=== PATIENT | male | born 1950 | race Caucasian/White ===

== ENCOUNTER 2018-08-30 11:30 | Outpatient (RCR) | payer MEDICARE, OTHER, SELFPAY | END 2018-08-30 12:00 | LOC: CAR 11:30 | PROVIDERS: Visit Provider Physician Assistant | DX: Z95.1 Presence of aortocoronary bypass graft (principal) | CPT/HCPCS: 93798 ==

== ENCOUNTER 2024-10-25 22:31 | Emergency (ER) | payer MEDICARE, SELFPAY ==
--- NOTE | 2024-10-25 22:35 | DI.RAD.S_ITS ---
PROCEDURE: XR CHEST 1V INDICATIONS: chest pain TECHNIQUE: One view of the chest was acquired. COMPARISON: None. FINDINGS: Surgical changes and devices: Median sternotomy changes. Multi lead left-sided pacemaker. Lungs and pleura: Low lung volumes. Asymmetric right hemidiaphragm elevation. Visible lung ceballos are clear. No focal consolidation, effusion, or pneumothorax. Mediastinum: Mediastinal contours appear normal. Heart size is normal. Bones and chest wall: No suspicious bony lesions. Overlying soft tissues appear unremarkable. IMPRESSION: Given low lung volumes, no acute cardiopulmonary disease. Dictated by: Nely Sepulveda M.D. on 10/25/2024 at 23:55 Approved by: Nely Sepulveda M.D. on 10/25/2024 at 23:56
--- NOTE | 2024-10-25 22:41 | EKG_ITS ---
[address] [address] Test Date: 2024-10-25 Pat Name: CLAUDIA BROWN Department: Room: Gender: Male A And P Technician: EULALIA : 1950 Requested By: Order Number: [id number] Reading MD: Gustavo Sanchez Measurements Intervals [place] Rate: 69 P: 76 ND: 170 QRS: -56 QRSD: 152 T: 85 QT: 430 QTc: 460 Interpretive Statements Atrial-sensed ventricular-paced rhythm Biventricular pacemaker detected Electronically Signed On 11-04-2024 18:49:04 PDT by Gustavo Sanchez
[2024-10-25 22:44] VITALS: BP 127/63; PULSE 71; RESP 16; TEMP 36.4; O2SAT 98; BMI 31.4
[2024-10-25] MEDS: ASPIRIN 81 MG CHEW TAB 324 MG PO (22:51)
[2024-10-25 23:07] LABS: INR 1.1 (0.9-1.3); Prothrombin Time 11.9 SECONDS (9.4-12.5)
[2024-10-25 23:09] LABS: PTT Partial Thromboplastin Tim 36 SECONDS (25.1-36.5)
[2024-10-25 23:11] LABS: Alanine Aminotransferase 36 IU/L (<50); Albumin 4.3 g/dL (3.5-5.0); Albumin Globulin Ratio 1.8 (1.0-2.8); Alkaline Phosphatase 66 U/L (38-126); Aspartate Aminotransferase 27 IU/L (17-59); BUN Creatinine Ratio 25.5 (6-22); Bilirubin Total 0.5 mg/dL (0.2-1.3); Blood Urea Nitrogen 35 mg/dL (9-20); Calcium 9.6 mg/dL (8.4-10.2); Carbon Dioxide 19 mmol/L (22-32); Chloride 109 mmol/L (98-107); Creatine Kinase 91 U/L (55-170); Estimated Glomerular Filt Rate 54 mL/min (>60); Globulin 2.4 g/dL (1.7-4.1); Glucose 183 mg/dL (80-110); HEMOLYSIS < 15 (0-50); Lipase 187 U/L (23-300); Magnesium 1.6 mg/dL (1.6-2.3); Potassium 4.8 mmol/L (3.4-5.1); Sodium 140 mmol/L (137-145); Total Protein 6.7 g/dL (6.3-8.2)
[2024-10-25 23:22] LABS: NT-proBNP (BNP-Adult 18+) 93 pg/mL (<125); Troponin I < 0.012 ng/mL (0.01-0.034)
[2024-10-25 23:26] LABS: Add Manual Diff / Slide Review NO; Basophils Absolute Auto 100 /uL (0-100); Basophils Percent Auto 0.9 % (0-2); Eosinophils Absolute Auto 200 /uL (0-450); Eosinophils Percent Auto 2.3 % (2-4); Hematocrit 41.6 % (41-53); Lymphocytes Absolute Auto 2300 /uL (1100-4500); Lymphocytes Percent Auto 26.4 % (25-40); Mean Corpuscular HGB Conc 33.5 % (30-36); Mean Corpuscular Hemoglobin 31.2 PG (26-34); Monocytes Absolute Auto 700 /uL (0-900); Monocytes Percent Auto 8.1 % (3-14); Neutrophils Absolute Auto 5400 /uL (1500-7000); Neutrophils Percent Auto 62.3 % (50-75); Platelet Count 230 X10^3/uL (150-400); Red Blood Cell Count 4.47 X10^6/uL (4.5-5.9); White Blood Cell Count 8.7 X10^3/uL (4.5-11.0)
[2024-10-26] VITALS (17 sets, daily range): BP systolic 123–186; BP diastolic 68–86; PULSE 60–66; RESP 13–16; O2SAT 93–99
[2024-10-26 02:00] LABS: Troponin I < 0.012 ng/mL (0.01-0.034)
--- NOTE | 2024-10-26 03:22 | EKG_ITS ---
[place] [address] [address] [place] [id number] Test Date: 2024-10-26 Pat Name: CLAUDIA BROWN Department: [facility] Room: Gender: Male Time Broker: LIBRA : 1950 Requested By: Order Number: [id number] Reading MD: Gustavo Sanchez Measurements Intervals [place] Rate: 63 P: 43 PA: 172 QRS: -59 QRSD: 164 T: 101 QT: 450 QTc: 460 Interpretive Statements Atrial-sensed ventricular-paced rhythm Biventricular pacemaker detected Electronically Signed On 11-04-2024 18:49:12 PDT by Gustavo Sanchez
--- NOTE | 2024-10-26 04:39 | ED_ITS ---
HPI - Chest Pain General Chief Complaint: Chest Pain Stated Complaint: Chest pain hx stent placement Time Seen by Provider: 10/25/24 23:52 Source: patient, RN notes reviewed and old records reviewed Mode of arrival: Ambulatory Limitations: no limitations History of Present Illness HPI narrative: 74-year-old male history of prior myocardial infarction with stent placed in November of 2023, CABG and pacemaker placed 5 years ago/patient presents with a complaint of chest discomfort similar to prior AL took nitro at 10:00 p.m. pain relieved. Patient states had left-sided chest pain radiating to his left arm feels very similar to his prior AL. patient nitro sublingual which improved it. Symptoms started about 10:00 a.m. this evening. Patient denies any shortness of breath has a little bit of nausea, no diaphoresis. Denies any she was bowel movements or urination. No new swelling in extremities. No syncope. Patient was on an aspirin 81 mg daily. Patient has had prior two-vessel CABG, pacemaker followed by cardiac stents 2 years ago. Patient has also had prior Mohs surgery on his ear. No reported drug allergies. No tobacco, alcohol or recreational drugs. Follows with Cardiology at [facility] in [place] Dr. Knutson. Lives on [facility]. Patient's home medications include aspirin 81 mg daily, atorvastatin, Synthroid, metoprolol, metformin, Ozempic, citalopram, Lantus, losartan, Effient, amlodipine, nitro sublingual PRN. Related Data Home Medications Medication Instructions Recorded Confirmed amlodipine 10 mg tablet 10 mg PO DAILY 10/25/24 10/25/24 atorvastatin 40 mg tablet 40 mg PO DAILY 10/25/24 10/25/24 escitalopram oxalate 10 mg tablet 10 mg PO DAILY 10/25/24 10/25/24 insulin glargine 100 unit/mL (3 unit SUBCUT 10/25/24 mL) subcutaneous pen (Lantus Solostar U-100 Insulin) levothyroxine 88 mcg tablet 88 mcg PO DAILY 10/25/24 10/25/24 losartan 100 mg tablet 100 mg PO DAILY 10/25/24 10/25/24 metformin 1,000 mg tablet 1,000 mg PO BID 10/25/24 10/25/24 metoprolol succinate 100 mg 100 mg PO DAILY 10/25/24 10/25/24 tablet,extended release 24 hr nitroglycerin 0.4 mg sublingual 0.4 mg sublingual Q5-15M PRN Chest 10/25/24 10/25/24 tablet (Nitrostat) Pain prasugrel HCl 10 mg tablet 10 mg PO DAILY 10/25/24 10/25/24 semaglutide 2 mg/dose (8 mg/3 mL) mg SUBCUT 10/25/24 subcutaneous pen injector (Ozempic) Allergies Allergy/AdvReac Type Severity Reaction Status Date / Time No Known Drug Allergies Allergy Verified 10/25/24 22:48 Review of Systems Review of Systems ROS Unobtainable: All systems reviewed & are unremarkable except as noted in HPI and below Exam Narrative Exam Narrative: GENERAL: Alert and oriented x three, male in mild distress HEENT: Head normocephalic, atraumatic, EOMI, pupils reactive, face symmetric, moist mucous membranes NECK: Supple, full range of motion CARDIOVASCULAR: Regular rate and rhythm without murmurs, rubs or gallops. No JVD. No edema bilateral lower extremities. RESPIRATORY: Breath sounds equal bilaterally, no wheezes rales or rhonchi. ABDOMEN: Soft, nontender. Normoactive bowel sounds all 4 quadrants. No guarding or rebound, rigidity, no mass : No CVA tenderness EXTREMITIES: Normal range of motion, no clubbing or edema. Neurovascularly intact NEUROLOGICAL: Cranial nerves II through XII grossly intact. Moving all extremities SKIN: Warm, dry, no petechiae, no rashes or lesions. Initial Vital Signs Initial Vital Signs: Vital Signs Temperature 97.5 F L 10/25/24 22:44 Pulse Rate 71 10/25/24 22:44 Respiratory Rate 16 10/25/24 22:44 Blood Pressure 127/63 10/25/24 22:44 Pulse Oximetry 98 10/25/24 22:44 Oxygen Delivery Method Room Air 10/25/24 22:44 Course Orders Ordered: Discontinued Medications Aspirin (Aspirin 81 Mg Chew Tab) 324 mg PO NOW ONE Stop: 10/25/24 22:36 Last Admin: 10/25/24 22:51 Dose: 324 mg Documented By: ULICES Nitroglycerin (Nitroglycerin 0.4 Mg Sl Tab) 0.4 mg SL NOW ONE Stop: 10/26/24 05:14 Last Admin: 10/26/24 05:21 Dose: 0.4 mg Documented By: MARIAN Nitroglycerin (Nitroglycerin Oint 1 Inch/Gm Oint...G.) 1 inch TOP NOW ONE Stop: 10/26/24 05:39 Last Admin: 10/26/24 05:48 Dose: 1 inch Documented By: MARIAN Vital Signs Vital signs: Vital Signs - 8 hr 10/26/24 01:31 10/26/24 01:33 10/26/24 01:33 Pulse Rate 63 60 Respiratory Rate 14 Blood Pressure 155/76 H Pulse Oximetry 98 98 10/26/24 02:00 10/26/24 02:00 10/26/24 02:30 Pulse Rate 61 61 Respiratory Rate 15 15 Blood Pressure 142/75 H Pulse Oximetry 96 97 10/26/24 02:30 10/26/24 03:00 10/26/24 03:00 Pulse Rate 63 Respiratory Rate 13 Blood Pressure 141/73 H 150/72 H Pulse Oximetry 99 10/26/24 03:30 10/26/24 03:30 10/26/24 04:00 Pulse Rate 63 63 Respiratory Rate 13 13 Blood Pressure 147/76 H Pulse Oximetry 96 95 10/26/24 04:00 10/26/24 04:30 10/26/24 04:30 Pulse Rate 63 Respiratory Rate 14 Blood Pressure 151/77 H 162/85 H Pulse Oximetry 99 10/26/24 05:00 10/26/24 05:00 10/26/24 05:30 Pulse Rate 62 Respiratory Rate 15 Blood Pressure 186/86 H 132/70 Pulse Oximetry 96 10/26/24 05:30 10/26/24 05:47 10/26/24 05:47 Pulse Rate 65 61 Respiratory Rate 14 15 Blood Pressure 141/76 H Pulse Oximetry 93 96 10/26/24 05:48 10/26/24 06:00 10/26/24 06:00 Pulse Rate 64 62 Respiratory Rate 16 Blood Pressure 141/76 H 151/81 H Pulse Oximetry 97 MDM - Chest Pain Lab Data 10/25/24 22:50 10/25/24 22:50 Labs: Lab Results 10/25/24 10/26/24 Range/Units 22:50 01:30 WBC 8.7 (4.5-11.0) X10^3/uL RBC 4.47 L (4.5-5.9) X10^6/uL Hgb 14.0 (13.5-17.5) g/dL Hct 41.6 (41-53) % MCV 93.0 (80-100) fL MCH 31.2 (26-34) PG MCHC 33.5 (30-36) % RDW 14.0 (11.6-14.8) % Plt Count 230 (150-400) X10^3/uL Neut % (Auto) 62.3 (50-75) % Lymph % (Auto) 26.4 (25-40) % [place] % (Auto) 8.1 (3-14) % Eos % (Auto) 2.3 (2-4) % Baso % (Auto) 0.9 (0-2) % Neut # (Auto) 5400 (8870-6862) /uL Lymph # (Auto) 2300 (9172-6918) /uL [place] # (Auto) 700 (0-900) /uL Eos # (Auto) 200 (0-450) /uL Baso # (Auto) 100 (0-100) /uL PT 11.9 (9.4-12.5) SECONDS INR 1.1 (0.9-1.3) APTT 36 (25.1-36.5) SECONDS Sodium 140 (137-145) mmol/L Potassium 4.8 (3.4-5.1) mmol/L Chloride 109 H (98-107) mmol/L Carbon Dioxide 19 L (22-32) mmol/L BUN 35 H (9-20) mg/dL Creatinine 1.37 H (0.66-1.25) mg/dL Estimated GFR 54 L (>60) mL/min BUN/Creatinine Ratio 25.5 H (6-22) Glucose 183 H (80-110) mg/dL Calcium 9.6 (8.4-10.2) mg/dL Magnesium 1.6 (1.6-2.3) mg/dL Total Bilirubin 0.5 (0.2-1.3) mg/dL AST 27 (17-59) IU/L ALT 36 (<50) IU/L Alkaline Phosphatase 66 (38-126) U/L Total Creatine Kinase 91 (55-170) U/L Troponin I < 0.012 < 0.012 (0.01-0.034) ng/mL NT-Pro-B Natriuret Pep 93 (<125) pg/mL Total Protein 6.7 (6.3-8.2) g/dL Albumin 4.3 (3.5-5.0) g/dL Globulin 2.4 (1.7-4.1) g/dL Albumin/Globulin Ratio 1.8 (1.0-2.8) Lipase 187 (23-300) U/L ECG Data Attestation: I personally reviewed and interpreted this ECG as follows: Prior ECG tracings: not available for review Interpretation: Atrial sensed ventricularly paced rhythm rate of 69, PA 170 QRS of 152 QTC of 460, no acute ST elevation or depression noted. No priors available for review. EKG 2. Shows atrial sensed ventricular paced rhythm with a rate of 63, PA 172 QRS of 164 QTC of 460. No dynamic changes. MDM Narrative Medical decision making narrative: Labs show white count 8 hemoglobin of 14 platelets of 230, coags are negative, creatinine is 1.37 no priors for comparison sodium is 140 potassium is 4.8 chloride elevated 109 CO2 is 19 with a BUN of 35, glucose is 183. Troponins less than 0.012 with a repeat troponin less than 0.012 and a BNP of 93. EKG shows ventricularly paced rhythm. Chest x-ray shows no acute change 74-year-old male history of known coronary artery disease with prior CABG and cardiac stents. Follow up left-sided chest discomfort states feels very similar to his prior AL. he has been stable on his medication continues take his aspirin daily he is on a beta pillo as well as statin. Cardiac workup thus far is negative creatinine of 1.37 I do not have priors for comparison. EKG shows paced rhythm. Chest x-ray shows no acute change. Patient sees [facility] Cardiology had his last heart catheterization in November of 2023 with stents placed at that time. He continues to be asymptomatic at this time. We will review with cardiology. Patient had aspirin 324 mg, was asymptomatic but then redeveloped some chest discomfort has a dose of sublingual nitro here. Spoke with patient's [facility] Cardiology team, Dr. Nolan at 0536 Asked that we transfer patient chat with the hospitalist. He was appropriate for trending troponins, stress test and we will decide about further interventions. Discussed patient had recurrent chest pain with the sublingual nitro she notes if he has not any recurrent skin have nitro paste but no other interventions at this time. Spoke with hospitalist Dr. Luther Monahan accepts for transfer. Did discuss we do not have stress testing available on the weekend, recommendations from Dr. Nolan. Patient is currently chest pain-free but does have nitro paste in place. Patient is currently chest pain free. Patient signed out to Dr. Nogueira while awaiting transport. Discharge Plan Departure Patient Disposition: [facility] Clinical Impression: Chest pain Prescriptions: No Action atorvastatin 40 mg tablet 40 mg PO DAILY metoprolol succinate 100 mg tablet extended release 24 hr 100 mg PO DAILY levothyroxine 88 mcg tablet 88 mcg PO DAILY amlodipine 10 mg tablet 10 mg PO DAILY metformin 1,000 mg tablet 1,000 mg PO BID losartan 100 mg tablet 100 mg PO DAILY escitalopram oxalate 10 mg tablet 10 mg PO DAILY insulin glargine [Lantus Solostar U-100 Insulin] 100 unit/mL (3 mL) insulin pen SUBCUT Patient Comments: [NO ORIGINAL SIG] prasugrel HCl 10 mg tablet 10 mg PO DAILY Ozempic 2 mg/dose (8 mg/3 mL) pen injector SUBCUT Patient Comments: [NO ORIGINAL SIG] nitroglycerin [Nitrostat] 0.4 mg Tablet, Sublingual 0.4 mg SUBLINGUAL Q5-15M PRN (Reason: Chest Pain) Rx Instructions: do not exceed 3 doses per episode
[2024-10-26] MEDS: NITROGLYCERIN 0.4 MG SL TAB SL (05:21)
--- NOTE | 2024-10-26 05:33 | PC.NURSE ---
Pt reported episode of mild 2/10 L chest pressure. Resolved with SL nitro.
[2024-10-26] MEDS: NITROGLYCERIN OINT 1 INCH/GM OINT...G. TOP (05:48)
--- NOTE | 2024-10-26 08:25 | PC.NURSE ---
PT is diabetic and has a CGM. His CGM is reading BG of 144. Pt currently denies chest pain. He endorses slight headache 3/10 stating typical for my with nitro. Pt calm, oriented, resting in bed. Spouse at bedside.
--- NOTE | 2024-10-26 08:37 | EKG_ITS ---
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
== END 2024-10-26 09:15 | disposition short-term general hospital (02) ==
PROVIDERS: Emergency Provider Emergency Medicine
DX: R07.9 Chest pain, unspecified (principal); I25.10 Atherosclerotic heart disease of native coronary artery without angina pectoris; I25.2 Old myocardial infarction; Z95.1 Presence of aortocoronary bypass graft; Z95.5 Presence of coronary angioplasty implant and graft
CPT/HCPCS: 36415; 71045; 80053; 82550; 83690; 83735; 83880; 84484; 85025; 85610; 85730; 93005; 99284